=== PATIENT | male | born 1990 | race Caucasian/White ===

== ENCOUNTER 2020-01-26 06:59 | Outpatient (NON) | payer BC, SELFPAY ==
[2020-01-26 18:53] LABS: SARS-CoV-2 RNA PCR Negative
== END 2020-01-26 07:00 ==
DX: Z20.828 Contact with and (suspected) exposure to other viral communicable diseases (principal)
CPT/HCPCS: 87635; C9803; U0003

== ENCOUNTER 2020-10-17 10:26 | Outpatient (CLI) | payer BC, SELFPAY ==
--- NOTE | 2020-11-01 15:25 | WPDHOMESLEEP ---
Sleep Study - Home Unattended Date of Study: 10/17/20 Ordering Provider: Loreta Kumari NP Interpreting Provider: Nesha Pedro MD Home Sleep Study Type: Apnea Link Air Height: 1.88 m Weight: 113.398 kg Body Mass Index: 32.1 Neck Circumference (inches): 16 [place]: 13 Reason for Sleep Study Excessive daytime sleepiness Sleep History Jonel Braun is a 29 year old man with intermittent morning jaw pain that started several months ago. He went to the dentist who said that the jaw pain could be due to sleep apnea. The patient has noticed waking up in the night trying to catch his breath. His fiancee says that he snores all night but it is worse after alcohol. This has been going on several months. His brother has sleep apnea and his parents snore but they have not been evaluated for sleep apnea. He rarely awakens at night with heartburn, belching or coughing. He rarely awakens from night feeling short of breath but it does happen. He frequently has trouble sleeping with a cold. He rarely wakes up gasping for breath at night. He occasionally has breathing problems at night observed by others. He does not sweat excessively at night. He rarely notices his heart pounding or beating irregularly at night. He does not fall asleep during the day, does not fall asleep involuntarily and does not fall asleep while driving. He does not have loss of muscle tone with strong emotion. He occasionally has daytime difficulties due to excessive sleepiness; his job title is a brand ambassador promotional model. He does not feel paralyzed on waking or falling asleep. He does not have vivid dreamlike scenes upon awakening or falling asleep. He does not feel afraid to go to sleep. He rarely has nightmares. He rarely remembers his dreams. He rarely has racing thoughts. He does not feel sad, depressed, or anxious. He rarely has muscular tension, rarely notices parts of his body jerking, he rarely kicks at night and he rarely has crawling and aching feelings in his legs. He rarely has any kind of leg pain at night. He occasionally has morning jaw pain. He does not grind his teeth during sleep that he is aware of, however his dentist suggested that he may have sleep apnea, so there may be findings consistent with bruxism. He is not bothered by pain during the day. He is not awakened by pain during the night. He does not wake up feeling stiff in the morning with sore achy muscles. He occasionally wakes up with pain in the neck and spine. He has fatigue, fainting spells, concentration difficulties, palpitations and headaches. He reports a 20 lb weight gain in the last year. Normal bedtime is 10:00 p.m. falling asleep quickly, waking 2-6 times at night. While awake, he uses the bathroom, rolls over to the opposite side, tries to get comfortable to return to sleep which usually occurs quickly. He wakes in the morning at 6:30 a.m.. On weekends, bedtime is later, 1:00 a.m.. He wakes at 7:00 a.m. on Friday and 10:00 a.m. on Friday. He estimates getting an average of 8 hours of sleep at night. He does not work split shifts. He works from 7:00 a.m. until 3:30 p.m. Friday to Friday. He sometimes takes a short nap in the afternoon or evening. A short nap may be refreshing. He is drowsy in the morning for an hour. He feels better in the afternoon compared to the morning. Habits: Never smoked tobacco. Caffeine 1 or 2 drinks per week. Alcohol 1 or 2 times a week. [facility] Past Medical History Medical History Allergies Environmental and seasonal allergies Migraines Family History Family History (Updated 11/01/20 @ 15:32 by Nesha Pedro MD) Grandparent Diabetes mellitus Hypertension Sibling Obstructive sleep apnea Social History Social History (Updated 08/16/20 @ 15:07 by Kassidy Hernandez [facility]) Smoking status: Never smoker Alcohol intake: current Drinks per week: 2 Substance use: never Substance use
[2020-11-01 15:38] VITALS: BMI 32.1
== END 2020-10-17 10:27 | disposition home or self-care (01) ==
LOC: ANHCSM 10:26
PROVIDERS: Visit Provider Nurse Practitioner
DX: G47.10 Hypersomnia, unspecified (principal); G47.33 Obstructive sleep apnea (adult) (pediatric)
CPT/HCPCS: 95806

== ENCOUNTER → 2021-03-02 02:33 | Outpatient (CLI) | payer BC, SELFPAY ==
[2021-03-02 18:57] LABS: SARS-CoV-2 RNA PCR Negative
== END ==
PROVIDERS: PCP Nurse Practitioner; Visit Provider Nurse Practitioner
DX: Z20.822 Contact with and (suspected) exposure to COVID-19 (principal)
CPT/HCPCS: C9803; U0003; U0005

== ENCOUNTER 2022-05-10 08:03 | Outpatient (CLI) | payer BC, SELFPAY ==
[2022-05-10 13:05] LABS: Basophils Absolute Auto 0.1 K/mm3 (0.0-0.1); Basophils Percent Auto 0.7 % (0.2-1.2); Eosinophils Absolute Auto 0.1 K/mm3 (0-0.3); Eosinophils Percent Auto 1.3 % (0-4.4); Hemoglobin 15.6 g/dL (14.0-18.0); Immature Granulocyte Absolute 0.06 K/mm3 (0.00-0.031); Immature Granulocyte Percent A 0.9 % (0-0.5); Lymphocytes Absolute Auto 2.41 K/mm3 (0.9-3.2); Lymphocytes Percent Auto 35.8 % (18.3-44.2); Mean Corpuscular HGB Conc 33.2 g/dl (32-36); Mean Corpuscular Hemoglobin 29.1 pg (26-34); Mean Corpuscular Volume 87.5 fl (80-100); Mean Platelet Volume 11.4 fl (7.4-10.4); Monocytes Absolute Auto 0.7 K/mm3 (0.1-0.6); Monocytes Percent Auto 9.8 % (2.6-8.5); Neutrophils Absolute Auto 3.5 K/mm3 (1.3-6.7); Neutrophils Percent Auto 51.5 % (45.5-73.1); Platelet Count Result 279 k/mm3 (150-375); Red Blood Count 5.37 M/mm3 (4.6-6.20); Red Cell Distribution Width 11.8 % (11.5-14.5); White Blood Count 6.7 K/mm3 (4.5-10.0)
[2022-05-10 13:11] LABS: Alanine Aminotransferase 124 U/L (6-50); Albumin Level 4.7 g/dL (3.5-5.1); Alkaline Phosphatase 52 U/L (38-126); Anion Gap 12 mmol/L (8-16); Aspartate Amino Transferase 82 U/L (17-59); Bilirubin,Total 0.8 mg/dL (0.2-1.3); Blood Urea Nitrogen 12 mg/dL (9-20); Calcium 9.4 mg/dL (8.4-10.2); Carbon Dioxide 27 mmol/L (22-30); Chloride 101 mmol/L (98-107); Cholesterol 158 mg/dL (0-200); Estimated Glomerular Filt Rate > 60; Glucose 96 mg/dL (65-110); HDL Direct 33 mg/dL; Potassium 4.2 mmol/L (3.4-5.0); Sodium 140 mmol/L (137-145); Triglycerides 217 mg/dL (<150)
[2022-05-10 13:22] LABS: LDL Cholesterol Direct 87 mg/dL
== END 2022-05-10 08:04 | disposition home or self-care (01) ==
LOC: ANHGOSHLAB 08:05
PROVIDERS: PCP Family Medicine; Visit Provider Nurse Practitioner
DX: Z00.00 Encounter for general adult medical examination without abnormal findings (principal)
CPT/HCPCS: 36415; 80053; 80061; 85025

== ENCOUNTER 2022-06-12 08:38 | Outpatient (CLI) | payer BC, SELFPAY ==
[2022-06-12 19:21] LABS: Hepatitis B Surface Antigen Negative (Negative)
[2022-06-12 19:26] LABS: HAV RESULT Negative (Negative); Hepatitis B Core IgM Result Negative (Negative)
[2022-06-12 19:29] LABS: Alanine Aminotransferase 94 U/L (6-50); Albumin Level 4.9 g/dL (3.5-5.1); Alkaline Phosphatase 53 U/L (38-126); Anion Gap 11 mmol/L (8-16); Aspartate Amino Transferase 59 U/L (17-59); Bilirubin,Total 1.1 mg/dL (0.2-1.3); Blood Urea Nitrogen 12 mg/dL (9-20); Calcium 9.3 mg/dL (8.4-10.2); Carbon Dioxide 26 mmol/L (22-30); Chloride 104 mmol/L (98-107); Estimated Glomerular Filt Rate > 60; Glucose 98 mg/dL (65-110); Potassium 4.5 mmol/L (3.4-5.0); Sodium 141 mmol/L (137-145)
[2022-06-12 19:38] LABS: Hepatitis C Virus Antibody Negative (Negative)
== END 2022-06-12 08:39 | disposition home or self-care (01) ==
LOC: ANHGOSHLAB 08:40
PROVIDERS: PCP Family Medicine; Visit Provider Family Medicine
DX: G43.119 Migraine with aura, intractable, without status migrainosus (principal); R74.8 Abnormal levels of other serum enzymes; Z13.29 Encounter for screening for other suspected endocrine disorder
CPT/HCPCS: 36415; 80053; 80074; 84443

== ENCOUNTER 2022-08-16 11:37 | Emergency (ER) | payer BC, SELFPAY ==
[2022-08-16 11:46] VITALS: BP 129/100; PULSE 70; RESP 16; TEMP 36.3; O2SAT 99
--- NOTE | 2022-08-16 12:04 | ED.URI ---
HPI - URI/Sore Throat General Chief Complaint: Upper Respiratory Infection Stated Complaint: fever, chills, sore throat, headache Time Seen by Provider: 08/16/22 11:50 Source: patient Mode of arrival: ambulatory Limitations: no limitations History of Present Illness HPI Narrative: 31-year-old male presents with complaint of sore throat for approximately 5 days. Reports that he had exudates, swelling, chills and body aches. Reports similar symptoms lasting may have strep. Cough is primary care physician and was prescribed Augmentin. Did not have a strep test. States that he has been taking antibiotics for 2-3 days and the medication is not helping. States his primary care physician would not change the antibiotic and sent him here for a strep culture. Afebrile. All systems reviewed and negative except as noted above. Related Data Home Medications Medication Instructions Recorded Confirmed cetirizine 10 mg tablet (Zyrtec) 10 mg PO DAILY 08/16/20 08/16/22 Allergies Allergy/AdvReac Type Severity Reaction Status Date / Time No Known Allergies Allergy Verified 08/16/22 11:54 Review of Systems Review of Systems: CONSTITUTIONAL: Denies fever, sweats. Reports chills, fatigue. EYES: Denies visual changes, redness, or discharge. ENT: Denies rhinorrhea, congestion. Reports sore throat. Denies otalgia. CARDIOVASCULAR: Denies chest pain, palpitations, or edema. RESPIRATORY: Denies cough or dyspnea. GASTROINTESTINAL: Denies abdominal pain, nausea, vomiting, or diarrhea. GENITOURINARY: Denies dysuria or hematuria. SKIN: Denies rash or itching. MUSCULOSKELETAL: Denies back pain, joint pain, or myalgia. NEUROLOGIC: Denies headache, numbness, or weakness. PSYCHIATRIC: Denies anxiety or depression. All other systems reviewed are negative, except as documented in HPI. [facility] Past Medical History Medical History Environmental and seasonal allergies Migraines Obstructive sleep apnea Family History Family History Grandparent Diabetes mellitus Hypertension Sibling Obstructive sleep apnea Social History Social History Social History: Caffeine-rarely Smoking status: Never smoker Alcohol intake: current Drinks per week: 2 Substance use: never Substance use type: does not use Lack of Transportation: No Lack of Food: Never True Current Housing: I Have Housing Concerned About Future Housing: No Difficulty Paying Gas/Electric Bills: No Difficulty Paying for Meds: No Currently Unemployed: No Education: Bachelor's Degree Difficulty w/ Childcare or Family Care: No Living arrangements: with family Occupation/Education: occupation Gender identity (if verbalized by the patient): Male Sexual Orientation (if Verbalized by the Patient): Straight or Heterosexual Agree to blood products: Yes Comments At time of signature, agree with nursing past medical, surgical, social and family history. There is no relevant family history pertinent to the presenting complaint. Exam Narrative: GENERAL: This is a well-nourished, well-developed patient, in no apparent distress. HEAD: normocephalic, atraumatic. EYES: PERRL. Sclera clear/white. Vision is grossly intact. EARS: External ears normal, auditory canals clear and without drainage, TMs normal without perforation. Hearing grossly intact. NOSE: External nose normal with no obvious nasal discharge, nares without redness, no rhinorrhea. THROAT: Mucous membranes moist, erythematous posterior pharynx, several vesicles noted, mild swelling NECK: Neck supple, non-tender without lymphadenopathy, masses or thyromegaly. CARDIOVASCULAR: Regular rate and rhythm without murmurs, gallops, or rubs. RESPIRATORY: Clear to auscultation. Breath sounds equal bilaterally. No wheezes, rales, or rhonchi. SKIN: warm, Dry,
== END 2022-08-16 12:06 | disposition home or self-care (01) ==
PROVIDERS: Emergency Provider Nurse Practitioner Family; PCP Nurse Practitioner
DX: J02.9 Acute pharyngitis, unspecified (principal)
CPT/HCPCS: 87255; 99213; G0463

== ENCOUNTER 2022-09-07 08:45 | Emergency (ER) | payer BC, SELFPAY ==
[2022-09-07 09:00] VITALS: BP 128/78; PULSE 82; RESP 16; TEMP 36.6; O2SAT 98
--- NOTE | 2022-09-07 09:29 | ED.EAR ---
HPI - Ear Problem General Chief complaint: Ear Stated complaint: L EARACHE Time Seen by Provider: 09/07/22 09:29 Source: patient Mode of arrival: ambulatory Limitations: no limitations History of Present Illness HPI Narrative: 31 y/o male presented for c/o left ear pain for 2 days. Endorses slight decrease in hearing, and described as pressure. Intermittent ringing yesterday. Denies dizziness, n/v/d/f/c. Taking regular allergy medication and took Sudafed without change. MD Complaint: ear pain Related Data Allergies Allergy/AdvReac Type Severity Reaction Status Date / Time No Known Allergies Allergy Verified 09/07/22 09:22 Review of Systems Review of Systems: CONSTITUTIONAL: Denies malaise, chills, or fever. EYES: Denies visual changes, redness, or discharge. ENT: Denies sinus pain, and sore throat. Reports ear pain CARDIOVASCULAR: Denies chest pain, palpitations, or edema. RESPIRATORY: Denies cough or dyspnea. GASTROINTESTINAL: Denies abdominal pain, nausea, vomiting, diarrhea SKIN: Denies rash or itching. MUSCULOSKELETAL: Denies myalgia. NEUROLOGIC: Denies headache. All systems reviewed & are unremarkable except as noted in HPI and below PMFSH Past Medical History Medical History Environmental and seasonal allergies Migraines Obstructive sleep apnea Family History Family History Grandparent Diabetes mellitus Hypertension Sibling Obstructive sleep apnea Social History Social History Social History: Caffeine-rarely Smoking status: Never smoker Alcohol intake: current Drinks per week: 2 Substance use: never Substance use type: does not use Lack of Transportation: No Lack of Food: Never True Current Housing: I Have Housing Concerned About Future Housing: No Difficulty Paying Gas/Electric Bills: No Difficulty Paying for Meds: No Currently Unemployed: No Education: Bachelor's Degree Difficulty w/ Childcare or Family Care: No Living arrangements: with family Occupation/Education: occupation Gender identity (if verbalized by the patient): Male Sexual Orientation (if Verbalized by the Patient): Straight or Heterosexual Agree to blood products: Yes Comments At time of signature, agree with nursing past medical, surgical, social and family history. There is no relevant family history pertinent to the presenting complaint Exam Narrative: GENERAL: Well-appearing, well-nourished, and in no acute distress. HEAD: Normocephalic EYES: PERRLA, conjunctivae clear ENT: Nares clear. Mucous membranes moist. Right TM pearly eisenberg with dull light reflex; left TM erythematous with clear effusion; no tragal tenderness. Oropharynx not erythematous without lesions. NECK: Supple. No lymphadenopathy CHEST: Clear to auscultation, breath sounds equal. HEART: Regular rate and rhythm. No murmur heard. SKIN: Warm, dry, no rash. NEURO: Alert and oriented x3. PSYCH: Normal mood and affect Course Course Emergency Course: Patient is aware of diagnosis, understands and agrees to treatment plan. Anticipatory guidance given. Patient agrees to follow-up as directed and is aware of reasons to seek care at the emergency department. Portions of this record may have been created with voice recognition software Level of Care: Express Care Visit Vital Signs Vital signs: Vital Signs Temperature 98 F 09/07/22 09:00 Pulse Rate 82 09/07/22 09:00 Respiratory Rate 16 09/07/22 09:00 Blood Pressure 128/78 09/07/22 09:00 Pulse Oximetry 98 09/07/22 09:00 Temperature 98 F 09/07/22 09:00 Pulse Rate 82 09/07/22 09:00 Respiratory Rate 16 09/07/22 09:00 Blood Pressure 128/78 09/07/22 09:00 Pulse Oximetry 98 09/07/22 09:00 Reviewed Medical Decision Making MDM Narrative Medical decision making narrativ
== END 2022-09-07 09:42 | disposition home or self-care (01) ==
PROVIDERS: Emergency Provider Nurse Practitioner Family; PCP Nurse Practitioner
DX: H65.02 Acute serous otitis media, left ear (principal)
CPT/HCPCS: 99213; G0463

== ENCOUNTER 2025-03-18 07:20 | Outpatient (CLI) | payer BC, SELFPAY ==
--- OUTSIDE RECORDS SUMMARY | 2025-03-18 07:24 | XMS_ITS | Clinical Summary ---
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 Gender Identity Not on file Sexual Orientation Not on file Last Filed Vital Signs Vital Sign Reading Time Taken Comments Blood Pressure 122/72 02/19/2018 3:23 PM CDT Pulse 65 02/19/2018 3:23 PM CDT Temperature - - Respiratory Rate - - Oxygen Saturation - - Inhaled Oxygen Concentration - - Weight 98.9 kg (218 lb) 02/19/2018 3:23 PM CDT Height 188 cm (6' 2) 02/19/2018 3:23 PM CDT Body Mass Index 27.99 02/19/2018 3:23 PM CDT Plan of Treatment Health Maintenance Due Date Last Done Comments Annual Physical 11/17/1994 Hepatitis C 11/17/2009 DTaP, Tdap and Td Vaccines ( 1 - Tdap) 11/17/2010 Hepatitis B Vaccines (1 of 3 - 19+ 3-dose series) 11/17/2010 HPV Vaccines (1 - 3-dose SCD M series) 11/17/2018 COVID-19 Vaccine ( - 2023-2 5 season) 2025 Meningococcal B Vaccine Aged Out No l onger eligible based on patient's age to complete this topic Meningococcal Vaccine Aged Out No denzel ching eligible based on patient's age to complete this topic Pneumococcal Vaccine: Pediat rics (0 to 5 Years) and At-Risk Patients (6 to 49 Years) Aged Out No longer eligible b ased on patient's age to complete this topic RSV Immunizations Under 20 Months Aged Out No longer eligible based on patient's age to complete this topic Insurance [address] [address]
--- OUTSIDE RECORDS SUMMARY | 2025-03-18 07:24 | XMS_ITS | Patient Health Record ---
Author Organization [facility] Address [facility] [place] [address] Support Name Relationship Address Phone Eryn Braun Emergency Contact Unknown Unavailabl e Jonel Braun Guarantor Unknown [phone] Allergies No Known Allergies Reason For Referral No Information Medications Medication SIG (Take, Route, Frequency, Duration) Notes Start Date End Date Status ZyrTEC 10 MG Tablet Chewable 1 tablet Orally Once a day A ctive Social History Tobacco Use: Social History Observation Description Date Details (start date - stop date) Never Smoker NA - NA Sex Assigned At : Social History Observation Description Sex Assigned At Male Social History Miscellaneous: Social Info Question Answer Notes Safety issues: Are there any firearms in the house? No Social History Social Info Question Answer Notes Household: Marital Status: Number of Adults in household: 2 Number of Children in Household: 0 Level of Education: Finished College Drug/Alcohol: Social Info Question Answer Notes Drugs Have you used drugs other than those for medical reasons in the past 12 months? Yes Marijuana? Yes Is there a minor (18 years or younger) at risk at home? No Are you still using? Yes Do you want treatment? No AUDIT-C (Standard) Points 3 Interpretation Positive Did you have a drink contain ing alcohol in the past year? Yes How often did you have six or more drinks on one occasion in the past year? Less than monthly (1 point) How many drinks did you have on a typical day when you were drinking in the past year? 3 or 4 drinks (1 point) How often did you have a drink containing alcohol in the past year? Monthly or less (1 point) Tobacco Use: Social Info Question Answer Notes Tobacco Control (Standard) Tobacco use: Nonsmoker Additional Details Category Social Info Options Details Miscellaneous: Occupation: Scheduling Sp ecialist Section Notes: Lives in [place] with of almost 2 yrs, no kids. Grew up [facility], 4 siblings. Good childhood. Education/employment: bachelors in science, minor business. community education specialist, been working for [employer] x 7 yrs. Problems Problem Type SNOMED Code ICD Code Onset Dates Problem Status W/U Status Risk Notes Problem Generalized anxiety disorder (84374849) Generalized anxiety disorder (F41.1) Active confirmed Problem Unable to concentrate (finding) (65884753) Difficulty concentrating (R41.840) Active confirmed Plan Of Treatment Pending Test Test Name Order Date ADHD Testing 01/15/2024 Insurance Providers Payer Name Payer Address Payer Phone Subscriber Number Group Number Insured Name Patient Relationship to Insured Coverage Start Date Coverage End Date [facility] [address] [place] [address] [id number] Jonel Braun Self - patient is the insured Medical (General) History Medical History History ICD Code Migraine DELIA abdominal aortic aneurysm: No atrial fibrillation: No chronic fatigue syndrome: No essential tremor: No hyperlipidemia: No hypertension: No Parkinson's disease: No restless leg syndrome: No stroke: No subdural hematoma: No type 1 diabetes mellitus: No type 2 diabetes mellitus: No vitamin B12 deficiency: No vitamin D deficiency: No vasovagal syncope: yes Surgical History Surgery Date(Month/Year) shoulder surgery appendix
--- OUTSIDE RECORDS SUMMARY | 2025-03-18 07:24 | XMS_ITS | Clinical Summary ---
Author Organization [facility] Address [address] [place] [address] Care Team Providers Care Water And Sewer Systems Superintendent Name Role Phone HasmukhNannette ennis Josi POLK-CLAY TRANSPORTER Primary Care Provider + Source Comments [facility],non-owned Affiliates and Associated Physician Practices is amultiple site organization consisting of ambulatory clinics and hospital sitesin [place]. This disclosure is being madepursuant to the Care Everywhere program and may not contain all information available regarding this patient. Last updated 18.[facility] Allergies No known active allergies Medications * Be aware that medications may not be up to date on this document. Alwaysverify current medications with the patient. Cetirizine HCl (ZYRTEC PO) Active clobetasol (TEMOVATE) 0.05 % cream Apply to affected area 2 times daily 45 g 1 09/15/2019 Active benzonatate (TESSALON) 100 MG capsuleIndicati ons:Viral URI with cough Take 1 capsule by mouth 3 times daily as needed for Cough 30 capsule 01/25/2020 Active Active Problems No known active problems Immunizations Immunization Administration Dates Next Due INFLUENZA VACCINE 03/23/2019 Family History Medical History Relation Name Comments Thyroid Disease Father Diabetes - Type 2 Maternal Grandfather Hyperlipidemia Maternal Grandfather Hypertension Maternal Grandfather Diabetes - Type 2 Maternal Grandmother Hyperlipidemia Maternal Grandmother Hypertension Maternal Grandmother Other Mother GERD with esoph agitis Thyroid Disease Mother Relation Name Status Comments Father Alive Maternal Grandfather Maternal Grandmother Mother Alive Social History Tobacco Use Types Packs/Day Years Used Date Smoking Tobacco: Never Smokeless Tobacco: Never Alcohol Use Standard Drinks/Week Comments Yes 0 (1 standard drink = 0.6 oz pur e alcohol) AUDIT-C Answer Date Recorded Frequency of Alcohol Consumption 2-3 times a wee k 07/05/2019 Average Number of Drinks 5 or 6 020 Frequency of Binge Drinking Not on file 06/23 Sex and Gender Information Value Date Recorded Sex Assigned at Not on file Legal Sex Male 2:24 PM DIRECTOR OF STUDENT FINANCIAL SERVICES Gender Identity Not on file Sexual Orientation Not on file Last Filed Vital Signs Vital Sign Reading Time Taken Comments Blood Pressure 120/82 08/10/2019 2:02 PM DIRECTOR OF STUDENT FINANCIAL SERVICES Pulse 72 08/10/2019 2:02 PM DIRECTOR OF STUDENT FINANCIAL SERVICES Temperature 36.4 C (97.5 F) 08/10/2019 2:02 PM DIRECTOR OF STUDENT FINANCIAL SERVICES Respiratory Rate - - Oxygen Saturation 96% 08/10/2019 2:02 PM DIRECTOR OF STUDENT FINANCIAL SERVICES Inhaled Oxygen Concentration - - Weight 108.4 kg (239 lb) 08/10/2019 2:02 PM DIRECTOR OF STUDENT FINANCIAL SERVICES Height 190.5 cm (6' 3) 07/05/2019 3:08 PM DIRECTOR OF STUDENT FINANCIAL SERVICES Body Mass Index 29.87 07/05/2019 3:08 PM DIRECTOR OF STUDENT FINANCIAL SERVICES Plan of Treatment Health Maintenance Due Date Last Done Comments DTAP/TDAP/TD VACCINES (1 - Tdap) 11/17/2010 HEPATITIS B VACCINE (1 of 3 - 19+ 3-dose series) 11/17/2010 HPV VACCINE (1 - 3-dose SCDM series) 11/17/2018 DEPRESSION SCREENING 06/23/2024 COVID-19 VACCINE (1 - 2023-2 5 season) 2025 INFLUENZA VACCINE (#1) 2025 03/23/2019 ZOSTER VACCINE (1 of 2) 11/17/2041 HEPATITIS C SCREENING Completed 07/22/2019 HIV SCREENING Completed 07/22/2019 HIB VACCINE Aged Out No longer eligi ble based on patient's age to complete this topic MENINGOCOCCAL (Group B) VACC INE SHARED DECISION-MAKING Aged Out No longer eligibl e based on patient's age to complete this topic MENINGOCOCCAL GROUPS A/C/Y/W VACCINE Aged Out No longer eligible b ased on patient's age to complete this topic PNEUMOCOCCAL VACCINE Aged Out No long er eligible based on patient's age to complete this topic Procedures Procedure Name Priority Date/Time Associated Diagnosis Comments HEPATITIS C ANTIBODY Routine 07/22/2019 8:42 AM DIRECTOR OF STUDENT FINANCIAL SERVICES Routine screening for STI (sexually transmitted infection) HIV-1 HIV-2 ANTIGEN/ANTIBODY Routine 07/22/2019 8:42 AM DIRECTOR OF STUDENT FINANCIAL SERVICES Routine screening for STI (sexually transmitted infection) from Last 3 Months or Most Recently Relevant to Health Maintenance Results * HIV-1 HIV-2 ANTIGEN/ANTIBODY (07/22/2019 8:42 AM DIRECTOR OF STUDENT FINANCIAL SERVICES) Pathologist [facility] HIV Antigen/Antibod y 1 & 2 Non-reacti ve Non-react angie 07/22/2019 10:28 AM DIRECTOR OF STUDENT FINANCIAL SERVICES [facility] Comment: Neither HIV-1 p24 Antigen nor HIV-1/HIV-2 Antibodies are detected. Blood BLOOD SPECIMEN / Unknown Lab Venipuncture / Unknown 07/22/2019 8:42 AM DIRECTOR OF STUDENT FINANCIAL SERVICES 07/22/2019 9:04 AM DIRECTOR OF STUDENT FINANCIAL SERVICES Siria Pinedo APRN-CLAY TRANSPORTER LAB - HEMATOLOGY ORDER ROCHELLE Final Result [address] [phone] * HEPATITIS C ANTIBODY (07/22/2019 8:42 AM DIRECTOR OF STUDENT FINANCIAL SERVICES) [facility] Hepatitis C Antibody Non-react angie Non-reac tive 07/22/2019 10:28 AM DIRECTOR OF STUDENT FINANCIAL SERVICES [facility] Comment: Hepatitis C Antibody screen indicates no serologic evidence of past or current infection with Hepatitis C Virus. Patients with unexplained liver disease who are immunocompromised or suspected of having acute Hepatitis C infection may benefit from Nucleic Acid Test (DIAZ) for Hepatitis C Viral RNA to confirm Hepatitis C status. Blood BLOOD SPECIMEN / Unknown Lab Venipuncture / Unknown 07/22/2019 8:42 AM DIRECTOR OF STUDENT FINANCIAL SERVICES 07/22/2019 9:04 AM DIRECTOR OF STUDENT FINANCIAL SERVICES Siria Pinedo APRN-CLAY TRANSPORTER LAB - CHEMISTRY ORDERA BLES Final Result Performing Organization Address City/[facility]/ZIP Co de Phone Number [address] [phone] from Last 3 Months or Most Recently Relevant to Health Maintenance Insurance ANTHEM ANTHEM Care Teams Water And Sewer Systems Superintendent Relationship Specialty Start Date End Date Nannette Noe, EXTERIOR INTERIOR SPECIALIST-CLAY TRANSPORTER [address] [place] [address] PCP - General 01/25/20
[2025-03-18 07:46] LABS: Hematocrit 45.3 % (42.0-52.0); Hemoglobin 15.0 g/dL (14.0-18.0); Immature Granulocyte Percent A 1.4 % (0-0.5); Lymphocytes Absolute Auto 2.47 K/mm3 (0.9-3.2); Mean Corpuscular HGB Conc 33.1 g/dl (32-36); Mean Corpuscular Hemoglobin 28.6 pg (26-34); Mean Corpuscular Volume 86.3 fl (80-100); Nucleated Red Blood Cells Absolute Auto 0.000 K/mm3 (0.0-0.012); Nucleated Red Blood Cells Perc 0.0 % (0.0-0.2); Platelet Count Result 272 k/mm3 (150-375); Red Blood Count 5.25 M/mm3 (4.6-6.20); White Blood Count 6.5 K/mm3 (4.5-10.0)
[2025-03-18 07:59] LABS: Alanine Aminotransferase 76 U/L (6-50); Albumin Level 4.5 g/dL (3.5-5.1); Alkaline Phosphatase 44 U/L (38-126); Anion Gap 10 mmol/L (4-12); Aspartate Amino Transferase 41 U/L (17-59); Bilirubin,Total 0.5 mg/dL (0.2-1.3); Blood Urea Nitrogen 17 mg/dL (9-20); Calcium 9.1 mg/dL (8.4-10.2); Carbon Dioxide 24 mmol/L (22-30); Chloride 106 mmol/L (98-107); Estimated Glomerular Filt Rate > 60; Glucose 104 mg/dL (65-110); Potassium 4.4 mmol/L (3.4-5.0); Sodium 140 mmol/L (137-145); Total Protein 7.2 g/dL (6.3-8.2)
== END 2025-03-18 07:21 | disposition home or self-care (01) ==
LOC: ANHLAB 07:22
PROVIDERS: PCP Family Medicine
DX: I10 Essential (primary) hypertension (principal); R53.83 Other fatigue
CPT/HCPCS: 36415; 80053; 85025